=== PATIENT | male | born 1945 | race Caucasian/White ===

== ENCOUNTER 2017-05-01 01:04 | Emergency (ER) | payer OTHER, MEDICARE ==
[~2017-05-01] VITALS: Ht 180.3 cm; Wt 122.5 kg
--- NOTE | ~2017-05-01 | EKG ---
[place] [address] [facility] [place] [address] ELECTROCARDIOGRAM REPORT Name: TAVO AGARWAL [id number] Admission: 05/01/17 Attend Phys: Discharge: 05/01/17 Date of : 45 Report #: [id number] THIS REPORT FOR: //name// [facility] ED Test Date: 2017-05-01 Test Time: 01:26:02 Pat Name: TAVO AGARWAL Department: Room: Gender: Life Skills Specialist: SAMI : 1945 Requested By: Maninder Melchor Order Number: [id number] MD: Mahesh Harris Measurements Intervals [place] Rate: 90 P: 21 [place]: 156 QRS: -46 QRSD: 95 T: 36 QT: 368 QTc: 451 Interpretive Statements Sinus rhythm Abnormal R-wave progression, early transition Inferior infarct, old Compared to ECG 05/01/2017 01:18:00 No significant changes Electronically Signed On 05-02-2017 8:44:31 CHEMISTRY TEACHER by Mahesh Harris [email or web address] <ELECTRONICALLY SIGNED> By: Mahesh Harris MD, [facility] 05/02/17 0844 012 012 Mahesh Harris MD, [facility] /EPI
--- NOTE | ~2017-05-01 | EKG ---
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 : 1945 Requested By: Sekou De La O Order Number: [id number] MD: Gautam Ashton Measurements Intervals [place] Rate: 96 P: 40 [place]: 154 QRS: -47 QRSD: 97 T: 48 QT: 374 QTc: 473 Interpretive Statements Sinus rhythm Abnormal R-wave progression, early transition Inferior infarct, old Baseline wander in lead(s) II,III,aVF No previous ECG available for comparison Electronically Signed On 05-01-2017 8:09:56 PRIVATE INQUIRY AGENT by Gautam Ashton [email or web address] <ELECTRONICALLY SIGNED> By: Gautam Ashton MD 05/01/17 0809 Gautam Ashton MD /REYMUNDO
[~2017-05-01 01:04] MED LIST: ASPIRIN325 PO; ATORVASTATIN CA40 MG PO; FISH OIL500 M2 PO; GLUCOSAMINE HC500 MG PO; LISINOPRIL-HCT1 EAC2 PO; VITAMIN D1000 UNIT PO
[2017-05-01] MEDS ORDERED: DOXYCYCLINE HY100 MG PO (01:22)
[2017-05-01 01:34] LABS: BASOPHILS 0.9 % (0.0-2.0); EOSINOPHILS 2.9 % (0.0-3.0); HEMATOCRIT 47.9 % (42.0-52.0); HEMOGLOBIN 15.8 gm/dL (14.0-18.0); LYMPHOCYTES 32.7 % (24.0-44.0); MCH 29.7 pg (26.0-34.0); MCHC 33.1 g/dL (28.0-37.0); MCV 89.7 fL (80.0-100.0); MONOCYTES 11.6 % (1.0-8.0); PLATELET COUNT 224 thou/uL (150-400); POLYS 51.9 % (36.0-66.0); RBC 5.34 mil/uL (4.50-6.00); RDW 13.8 % (10.5-14.5); WBC 7.7 thou/uL (4.0-11.0)
[2017-05-01 01:45] LABS: ANION GAP 11 mmol/L (7-16); BUN 20 mg/dL (7-18); CALCIUM 9.3 mg/dL (8.5-10.1); CHLORIDE 106 mmol/L (98-107); CO2 27 mmol/L (21-32); CREATININE 1.5 mg/dL (0.7-1.3); GLUCOSE 111 mg/dL (74-106); POTASSIUM 3.9 mmol/L (3.5-5.1); SODIUM 144 mmol/L (136-145)
[2017-05-01 01:54] LABS: TROPONIN-I < 0.04 ng/mL (<0.06)
[2017-05-01] MEDS ORDERED: ZOFRAN4 MG PO (02:26)
[2017-05-01] MEDS ORDERED: PEPCID40 MG PO (02:26)
== END 2017-05-01 02:46 | disposition home or self-care (01) ==
LOC: ER 01:04
PROVIDERS: Emergency Medicine
DX: R10.13 Epigastric pain (principal); R11.0 Nausea; I10 Essential (primary) hypertension; E78.00 Pure hypercholesterolemia, unspecified

== ENCOUNTER 2018-06-11 04:17 | Inpatient (IN) | payer OTHER, MEDICARE ==
[2018-06-11] VITALS (16 sets, daily range): BP systolic 111–139; BP diastolic 66–93
[~2018-06-11] VITALS: Ht 180.3 cm; Wt 118.8 kg
[~2018-06-11 04:17] MED LIST changes: +DOXYCYCLINE HY100 MG PO; +PEPCID40 MG PO; +ZOFRAN4 MG PO
[2018-06-11 04:50] LABS: ABSOLUTE NEUTROPHILS 6.2 thou/uL (1.4-8.2); BASOPHILS 0.2 % (0.0-2.0); EOSINOPHILS 1.4 % (0.0-3.0); HEMOGLOBIN 15.1 gm/dL (14.0-18.0); LYMPHOCYTES 10.4 % (24.0-44.0); MCHC 32.9 g/dL (28.0-37.0); MCV 88.2 fL (80.0-100.0); MONOCYTES 8.6 % (1.0-8.0); PLATELET COUNT 230 thou/uL (150-400); POLYS 79.4 % (36.0-66.0); RBC 5.21 mil/uL (4.50-6.00); RDW 13.8 % (10.5-14.5); WBC 7.9 thou/uL (4.0-11.0)
[2018-06-11 05:01] LABS: ANION GAP 12 mmol/L (7-16); BUN 17 mg/dL (7-18); CALCIUM 9.2 mg/dL (8.5-10.1); CHLORIDE 104 mmol/L (98-107); CO2 24 mmol/L (21-32); CREATININE 1.2 mg/dL (0.7-1.3); GLUCOSE 139 mg/dL (74-106); SODIUM 140 mmol/L (136-145)
[2018-06-11 05:10] LABS: TROPONIN-I <0.06 ng/mL (<0.06)
--- NOTE | 2018-06-11 08:05 | NUR ---
DR RAMESH AT BEDSIDE
[2018-06-11] MEDS ORDERED: NORVASC5 MG PO (08:16)
[2018-06-11] MEDS ORDERED: LOSARTAN POTAS100 MG PO (08:17)
--- NOTE | 2018-06-11 08:18 | NUR ---
TAKING PT TO ICU ON SELLING MANAGER NOW; DR RAMESH JUST FINISHED AT BEDSIDE
--- NOTE | 2018-06-11 09:22 | EKG ---
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: lupe : 1945 Requested By: Sekou De La O Order Number: [id number] MD: Mahesh Harris Measurements Intervals [place] Rate: 91 P: 42 [place]: 156 QRS: -51 QRSD: 94 T: 64 QT: 362 QTc: 446 Interpretive Statements Sinus rhythm Abnormal R-wave progression, late transition Inferior infarct, old Compared to ECG 05/01/2017 01:26:02 No significant changes Electronically Signed On 06-11-2018 9:22:13 ELECTRO MECHANICAL TECHNOLOGIST by Mahesh Harris [email or web address] ��������������������������������������������� <ELECTRONICALLY SIGNED> ���������������������������������������� By: Mahesh Harris MD, [facility] ��������������������������������������������� 06/11/18 0922 0428 0428 Mahesh Harris MD, [facility] /EPI
[2018-06-11 09:36] LABS: CHOLESTEROL 97 mg/dL (<200); HDL CHOLESTEROL 41 mg/dL (>40); LDL CHOLESTEROL 44 mg/dL (<100); TC:HDL 2.4 Ratio (Not establshd); TRIGLYCERIDE 64 mg/dL (<150); VLDL 13 mg/dL (<40)
--- NOTE | 2018-06-11 10:54 | NUR ---
PT TO BOOK AUTHOR WITH GABRIEL - OKAYED BY [facility] TO TRANSPORT OFF MONITOR
--- NOTE | 2018-06-11 17:52 | CATHLAB ---
[facility] [address] [place] [address] INVASIVE PROCEDURE REPORT Name: TAVO AGARWAL Room #: 238-P [facility] IN ..#: [id number] ������������� Admission: 06/11/18 ������������� Attend Phys: Connor Booker MD Discharge: ��� ������������� ��� Date of : 45 Date of Service: 06/11/18 175 �� Report #: [id number] �������� ��������������������������������������������[id number] THIS REPORT FOR: //name// APPROVED REPORT Study performed: 06/11/2018 10:39:51 Patient Details Patient Status: In-Patient Room #: The patient is a 73 year-old male Event Personnel Jamaal Waters Group Care Worker, Margie Thomas RN RN, Laura Ojeda RTR, Rachel Andre David Monitor Procedures Performed Art Access - R femoral artery* Left Heart Cath w/or w/o Coronaries [id number] [facility] [address] Initial Mod Sed Same Phys/QHP Gr5y [id number] 68783 Mod Sed Same Phys/QHP Ea [id number] Hemostasis with Manual pressure Indication Abnormal ECG, Arrhythmia, Dizziness and vertigo, Unstable angina , Chest pain Risk Factors Hypercholesterolemia, Hypertension Procedure Narrative The patient was brought urgently to the Cardiac Catheterization Laboratory and was prepped and draped in a sterile manner. The Right Groin^ was infiltrated with 1% Lidocaine subcutaneous anesthesia. A PINNACLE 4FR Sheath #[id number] sheath was inserted into the RFA^. Coronary angiography was performed using coronary diagnostic catheters. The right coronary system was accessed and visualized with a JR 4 catheter. The left coronary system was accessed and visualized with a JL 5 catheter. The left ventricle was accessed and visualized with a Pigtail catheter. Left ventricular/Aortic Valve gradient assessed via catheter pullback. Left ventriculogram was performed in LANZA projection. Hemostasis was obtained with manual pressure following sheath removal without any complications. The patient tolerated the procedure well and there were no complications associated with the procedure. There was no hematoma. Retrograde passage of a 4 [place] JL4 catheter using a J-tipped guidewire was not able to be performed. 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 The patient remained hemodynamically stable throughout the diagnostic cardiac catheterization. Intraoperative Conscious Sedation Sedation start time: 11:19 Case end Time: 14:03 Fentanyl 150 mcg Versed 3 mg Fluoro Time: 8.20 minutes Dose: DAP 80595.00 cGycm2 1034 mGy Contrast Type and Amount: Visipaque 165 ml Diagnostic Cath Left Main This is a large caliber vessel, with no flow-limiting lesions. LAD There is a dual LAD system, one branch supplying septal perforators as it extends down to the apex. The lateral branch travels down the anterolateral wall and supplies diagonal arteries. There is mild disease, 20% in the proximal segments of both arteries. Circumflex The proximal segment is ectatic with mild disease. OM1 This is a moderate size caliber vessel, patent with no flow-limiting lesions. OM2 This is a patent vessel, with no flow-limiting lesions. Right Coronary The mid and distal segments are ectatic throughout with no flow-limiting lesions. R PDA This is a patent vessel, with no flow-limiting lesions. RPLV This is a patent vessel, with no flow-limiting lesions. Left Ventriculography The left ventricle is normal in size with normal contractility. The left ventricular ejection fraction is estimated to be 55%. An LVEDP was measured and there is no gradient across the outflow tract. Hemodynamics The aortic pressure is 135/78 mmHg with a mean of 105 mmHg. The left ventricular pressure is 136/2 mmHg with a mean of mmHg. The left ventricular end diastolic pressure is 19 mmHg. PCI Technique Lesion Percutaneous coronary intervention was performed on the Common iliac. [facility] [address] [place] [address] INVASIVE PROCEDURE REPORT Name: TAVO AGARWAL Room #: 238-P ADM IN M.R.#: [id number] ������������� Admission: 06/11/18 ������������� Attend Phys: Connor Booker MD Discharge: ��� ������������� ��� Date of : 45 Date of Service: 06/11/18 1751 �� Report #: [id number] �������� ��������������������������������������������[id number] Conclusion 1. There is mild disease in the LAD and left circumflex arteries. 2. Ectatic segments in the left circumflex and RCA. 3. Normal LV systolic function. 4. 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 Recommend evaluation by IR. ��������������������������������������������� <ELECTRONICALLY SIGNED> ���������������������������������������� By: Jamaal Waters MD ��������������������������������������������� 06/11/181750 50 50 Jamaal Waters MD /INF
[2018-06-12] VITALS: BP 149/83
[2018-06-12 04:00] VITALS: BP 127/81
[2018-06-12 04:34] LABS: CALCIUM 9.2 mg/dL (8.5-10.1); CREATININE 1.4 mg/dL (0.7-1.3); POTASSIUM 4.3 mmol/L (3.5-5.1)
[2018-06-12 04:37] LABS: HEMATOCRIT 44.8 % (42.0-52.0); HEMOGLOBIN 14.5 gm/dL (14.0-18.0); MCH 28.9 pg (26.0-34.0); MCHC 32.3 g/dL (28.0-37.0); MCV 89.4 fL (80.0-100.0); RBC 5.01 mil/uL (4.50-6.00); RDW 14.3 % (10.5-14.5); WBC 7.8 thou/uL (4.0-11.0)
[2018-06-12 06:01] VITALS: BP 118/55
[2018-06-12 08:00] VITALS: BP 133/84
[2018-06-12] MEDS ORDERED: CLOPIDOGREL75 MG PO (09:45)
[2018-06-12 09:56] VITALS: BP 127/81
[2018-06-12 11:32] VITALS: BP 127/81
== END 2018-06-12 11:15 | disposition home or self-care (01) | DRG 252 ==
LOC: ER 04:17 → ICU 05:49 → EROBS 05:49 → ICU 08:00
PROVIDERS: Emergency Medicine; Nuclear Medicine Nuclear Cardiology; Nurse Practitioner Gerontology; ADMIT Hospitalist
PROC: B4181ZZ Fluoroscopy of Bilateral Renal Arteries using Low Osmolar Contrast (ICD-10-PCS; principal; 2018-06-11)
PROC: 047H3FZ Dilation of Right External Iliac Artery with Three Intraluminal Devices, Percutaneous Approach (ICD-10-PCS; principal; 2018-06-11)
PROC: 4A023N7 Measurement of Cardiac Sampling and Pressure, Left Heart, Percutaneous Approach (ICD-10-PCS; principal; 2018-06-11)
PROC: B2151ZZ Fluoroscopy of Left Heart using Low Osmolar Contrast (ICD-10-PCS; principal; 2018-06-11)
PROC: B41D1ZZ Fluoroscopy of Aorta and Bilateral Lower Extremity Arteries using Low Osmolar Contrast (ICD-10-PCS; principal; 2018-06-11)
PROC: B2111ZZ Fluoroscopy of Multiple Coronary Arteries using Low Osmolar Contrast (ICD-10-PCS; principal; 2018-06-11)
PROC: 047C3DZ Dilation of Right Common Iliac Artery with Intraluminal Device, Percutaneous Approach (ICD-10-PCS; principal; 2018-06-11)
DX: I77.72 Dissection of iliac artery (principal); E43 Unspecified severe protein-calorie malnutrition; R07.89 Other chest pain; I10 Essential (primary) hypertension; E78.00 Pure hypercholesterolemia, unspecified; I25.10 Atherosclerotic heart disease of native coronary artery without angina pectoris; M19.90 Unspecified osteoarthritis, unspecified site; I70.201 Unspecified atherosclerosis of native arteries of extremities, right leg; R73.9 Hyperglycemia, unspecified; Z96.611 Presence of right artificial shoulder joint; I25.2 Old myocardial infarction; Z87.891 Personal history of nicotine dependence; Z79.82 Long term (current) use of aspirin; Z79.899 Other long term (current) drug therapy; Z88.8 Allergy status to other drugs, medicaments and biological substances; Z82.49 Family history of ischemic heart disease and other diseases of the circulatory system
CPT/HCPCS: 10203

== ENCOUNTER → 2019-09-25 | Outpatient (CLI) | payer OTHER, MEDICARE ==
[~2019-09-25] MED LIST changes: +CLOPIDOGREL75 MG PO; +LOSARTAN POTAS100 MG PO; +NORVASC5 MG PO
== END ==
LOC: SJCVC 10:00
PROVIDERS: ATTEND Internal Medicine Cardiovascular Disease
DX: I25.10 Atherosclerotic heart disease of native coronary artery without angina pectoris (principal); I10 Essential (primary) hypertension; E78.00 Pure hypercholesterolemia, unspecified; Z90.49 Acquired absence of other specified parts of digestive tract; Z79.899 Other long term (current) drug therapy; Z87.891 Personal history of nicotine dependence

== ENCOUNTER → 2020-09-30 | Outpatient (CLI) | payer OTHER, MEDICARE | LOC: SJCVC 15:08 | PROVIDERS: ATTEND Internal Medicine Cardiovascular Disease | DX: R94.31 Abnormal electrocardiogram [ECG] [EKG] (principal); R00.0 Tachycardia, unspecified; I10 Essential (primary) hypertension; I25.10 Atherosclerotic heart disease of native coronary artery without angina pectoris; I73.9 Peripheral vascular disease, unspecified; E78.00 Pure hypercholesterolemia, unspecified; M19.90 Unspecified osteoarthritis, unspecified site; Z90.49 Acquired absence of other specified parts of digestive tract; Z98.890 Other specified postprocedural states; Z95.820 Peripheral vascular angioplasty status with implants and grafts; Z88.8 Allergy status to other drugs, medicaments and biological substances; Z79.82 Long term (current) use of aspirin; Z79.84 Long term (current) use of oral hypoglycemic drugs; Z79.899 Other long term (current) drug therapy; Z87.891 Personal history of nicotine dependence; Z82.49 Family history of ischemic heart disease and other diseases of the circulatory system ==

== ENCOUNTER → 2020-11-03 | Outpatient (CLI) | payer OTHER, MEDICARE | LOC: SJCVCIMAG 07:56 | PROVIDERS: ATTEND Internal Medicine Cardiovascular Disease | DX: I65.23 Occlusion and stenosis of bilateral carotid arteries (principal); I73.9 Peripheral vascular disease, unspecified; I77.9 Disorder of arteries and arterioles, unspecified; I25.10 Atherosclerotic heart disease of native coronary artery without angina pectoris; I10 Essential (primary) hypertension; I25.2 Old myocardial infarction; E78.00 Pure hypercholesterolemia, unspecified; M19.90 Unspecified osteoarthritis, unspecified site; R06.00 Dyspnea, unspecified; M79.604 Pain in right leg; M79.605 Pain in left leg; E78.5 Hyperlipidemia, unspecified; Z87.891 Personal history of nicotine dependence; Z79.84 Long term (current) use of oral hypoglycemic drugs; Z79.899 Other long term (current) drug therapy; Z79.82 Long term (current) use of aspirin ==